=== PATIENT | male | born 1980 | race African-American/Black ===

== ENCOUNTER 2019-03-07 20:46 | Inpatient (IN) | payer MEDICAID ==
[~2019-03-07] VITALS: Ht 182.9 cm; Wt 83.9 kg
[2019-03-07] MEDS ORDERED: TERBUTALINE SULFATE 1MG/ML VIAL SUBCUT ONE (23:15)
[2019-03-08] MEDS ORDERED: MORPHINE SULFATE 4 MG/ML CPJ (NOT FOR IM USE) IV ONE ×2 (00:45→05:15)
[2019-03-08] MEDS ORDERED: PHENYLEPHRINE 20 MG in DEXT 5% WATER 248 ML IV PRN ×2 (01:15→01:45)
[2019-03-08] MEDS ORDERED: TERBUTALINE SULFATE 1MG/ML VIAL SUBCUT ONE (03:15)
[2019-03-08] MEDS ORDERED: IBUPROFEN 600MG TABLET PO NR (05:30)
[2019-03-08] MEDS ORDERED: OXYCODONE HCL/ACETAMINOPHEN 5/325MG TABLET PO NR (05:30)
[2019-03-08 05:57] LABS: BASOPHILS % 0.6 % (0.0-2.0); EOSINOPHILS % 1.5 % (0.0-5.0); HEMATOCRIT. 44.1 % (42.0-52.0); HEMOGLOBIN. 15.1 g/dL (14.0-18.0); LYMPHOCYTES % 16.6 % (20.0-50.0); MEAN CORPUSCULAR HEMOGLOBIN 29.6 pg (28.0-32.0); MEAN CORPUSCULAR VOLUME 86.6 fL (80.0-94.0); MEAN PLATELET VOLUME 7.4 fl (7.4-10.4); MONOCYTES % 9.1 % (2.0-8.0); NEUTROPHILS % 72.2 % (40.0-76.0); PLATELET 392 x1000/uL (130-400); RED BLOOD CELL COUNT 5.09 mill/uL (4.7-6.1); RED CELL DISTRIBUTION WIDTH 13.9 % (11.6-14.6)
[2019-03-08] MEDS ORDERED: CHLORDIAZEPOXIDE 25MG CAPSULE PO NR (06:00)
[2019-03-08 06:05] LABS: CHLORIDE 102 mEq/L (98-107)
[2019-03-08 06:09] LABS: ETHANOL BLOOD < 10 mg/dL
[2019-03-08 06:24] LABS: PARTIAL THROMBOPLASTIN TIME 25.7 sec (23.4-31.0); PROTHROMBIN TIME 10.1 sec (9.6-11.0)
[2019-03-08 08:00] VITALS: BP 120/88
[2019-03-08 08:15] LABS: CLARITY URINE CLEAR (CLEAR); COLOR URINE YELLOW (YELLOW); KETONES URINE NEGATIVE (NEGATIVE); LEUKOCYTE ESTERASE URINE NEGATIVE (NEGATIVE); NITRITE URINE NEGATIVE (NEGATIVE); OCCULT BLOOD URINE TRACE (NEGATIVE); PH URINE 6.5 (4.5-8.0); PROTEIN URINE NEGATIVE (NEGATIVE); SPECIFIC GRAVITY URINE 1.009 (1.005-1.030); UROBILINOGEN URINE 0.2 E.U./dL (0.2-1.0)
[2019-03-08] MEDS ORDERED: POTASSIUM CHLORIDE 20MEQ TABLET SR PO NR ×3 (08:15→20:15)
[2019-03-08] MEDS ORDERED: KETOROLAC 30MG/ML VIAL IV PRN (09:45)
[2019-03-08] MEDS ORDERED: LORAZEPAM 2MG/ML CPJ IV PRN (09:45)
[2019-03-08] MEDS: METOPROLOL TARTRATE 50MG TABLET PO SCH ×2 (10:36→20:44)
[2019-03-08] MEDS: FAMOTIDINE 20MG TABLET PO SCH ×2 (10:36→20:45)
[2019-03-08] MEDS: AMLODIPINE 5MG TABLET PO SCH ×2 (10:37→20:45)
[2019-03-08] MEDS ORDERED: [UNRECOGNIZED DRUG - REMARK] IV ONE ×2 (11:00)
[2019-03-08] MEDS ORDERED: AMLO-326 MT (11:02)
[2019-03-08] MEDS ORDERED: METO25TA6 MT (11:02)
[2019-03-08 11:11] VITALS: BP 122/78
[2019-03-08 14:14] LABS: *AMPHETAMINES SCREEN URINE NEGATIVE (NEGATIVE); *BARBITURATES SCREEN URINE NEGATIVE (NEGATIVE); *BENZODIAZEPINES SCREEN URINE NEGATIVE (NEGATIVE); *COCAINE SCREEN URINE NEGATIVE (NEGATIVE)
[2019-03-08 14:15] LABS: CANNABINOID URINE SCREEN NEGATIVE (NEGATIVE); METHADONE URINE SCREEN NEGATIVE (NEGATIVE); OPIATES URINE SCREEN PRESUMTIVE POSITIVE (NEGATIVE); PHENCYCLIDINE URINE SCREEN NEGATIVE (NEGATIVE)
[2019-03-08 20:00] VITALS: BP 133/87
[2019-03-08] MEDS: CHLORDIAZEPOXIDE 25MG CAPSULE PO SCH (21:20)
[2019-03-09] VITALS: BP 121/83
[2019-03-09 04:00] VITALS: BP 137/87
[2019-03-09] MEDS: CHLORDIAZEPOXIDE 25MG CAPSULE PO SCH ×2 (05:58→14:00)
[2019-03-09 06:14] LABS: BASOPHILS % 0.3 % (0.0-2.0); EOSINOPHILS % 1.8 % (0.0-5.0); HEMATOCRIT. 41.6 % (42.0-52.0); HEMOGLOBIN. 13.9 g/dL (14.0-18.0); LYMPHOCYTES % 21.1 % (20.0-50.0); MEAN CORPUSCULAR HEMOGLOBIN 29.5 pg (28.0-32.0); MEAN CORPUSCULAR VOLUME 88.3 fL (80.0-94.0); MONOCYTES % 8.9 % (2.0-8.0); NEUTROPHILS % 67.9 % (40.0-76.0); PLATELET 357 x1000/uL (130-400); RED BLOOD CELL COUNT 4.71 mill/uL (4.7-6.1); RED CELL DISTRIBUTION WIDTH 13.8 % (11.6-14.6)
[2019-03-09 08:00] VITALS: BP 122/86
[2019-03-09] MEDS: AMLODIPINE 5MG TABLET PO SCH (08:22)
[2019-03-09] MEDS: METOPROLOL TARTRATE 50MG TABLET PO SCH (08:22)
[2019-03-09] MEDS: FAMOTIDINE 20MG TABLET PO SCH (08:22)
[2019-03-09] MEDS ORDERED: POTASSIUM CHLORIDE 20MEQ TABLET SR PO NR (10:15)
[2019-03-09 14:59] VITALS: BP 128/60
== END 2019-03-09 15:20 | disposition home or self-care (01) | DRG 501 ==
LOC: ER 20:46 → 6EST 03-08 05:44 → ENRESERV 03-08 07:11
PROVIDERS: ADMIT Internal Medicine; ATTEND Internal Medicine
PROC: 0V9S3ZZ Drainage of Penis, Percutaneous Approach (ICD-10-PCS; principal; 2019-03-08)
PROC: 3E0N3GC Introduction of Other Therapeutic Substance into Male Reproductive, Percutaneous Approach (ICD-10-PCS; 2019-03-08)
DX: N48.39 Other priapism (principal); E87.6 Hypokalemia; F10.10 Alcohol abuse, uncomplicated; G89.29 Other chronic pain; M10.9 Gout, unspecified; F17.200 Nicotine dependence, unspecified, uncomplicated; I10 Essential (primary) hypertension; Z80.6 Family history of leukemia; Z82.49 Family history of ischemic heart disease and other diseases of the circulatory system; Z83.3 Family history of diabetes mellitus
CPT/HCPCS: 36415; 80051; 80305; 80320; 83735; 85660; 96374; 96375; 99285; J2270; J2370; J3105; J3490; J7050; J7060; G0480

== ENCOUNTER 2019-03-12 00:35 | Emergency (ER) | payer MEDICAID ==
[~2019-03-12] VITALS: Ht 182.9 cm; Wt 84.0 kg
[~2019-03-12 00:35] MED LIST: AMLO-326 MT; METO25TA6 MT
[2019-03-12 04:07] LABS: BASOPHILS % 0.5 % (0.0-2.0); EOSINOPHILS % 1.8 % (0.0-5.0); HEMATOCRIT. 41.2 % (42.0-52.0); HEMOGLOBIN. 14.2 g/dL (14.0-18.0); LYMPHOCYTES % 18.2 % (20.0-50.0); MEAN CORPUSCULAR HEMOGLOBIN 29.9 pg (28.0-32.0); MEAN CORPUSCULAR VOLUME 86.8 fL (80.0-94.0); MEAN PLATELET VOLUME 7.2 fl (7.4-10.4); MONOCYTES % 7.4 % (2.0-8.0); NEUTROPHILS % 72.1 % (40.0-76.0); PLATELET 423 x1000/uL (130-400); RED BLOOD CELL COUNT 4.75 mill/uL (4.7-6.1); RED CELL DISTRIBUTION WIDTH 13.9 % (11.6-14.6)
[2019-03-12 04:14] LABS: CHLORIDE 106 mEq/L (98-107)
[2019-03-12 04:17] LABS: ETHANOL BLOOD 198 mg/dL
[2019-03-12] MEDS ORDERED: POTASSIUM CHLORIDE 20MEQ TABLET SR PO SCH (04:30)
[2019-03-12 04:50] VITALS: BP 132/75
== END 2019-03-12 04:51 | disposition home or self-care (01) ==
LOC: ER 00:35
DX: F10.10 Alcohol abuse, uncomplicated (principal); Y90.6 Blood alcohol level of 120-199 mg/100 ml; E87.6 Hypokalemia; R20.2 Paresthesia of skin; I10 Essential (primary) hypertension; F17.200 Nicotine dependence, unspecified, uncomplicated; F12.10 Cannabis abuse, uncomplicated; Z88.8 Allergy status to other drugs, medicaments and biological substances
CPT/HCPCS: 36415; 80048; 80320; 85025; 99283; Z7610; G0480

== ENCOUNTER 2019-04-12 22:02 | Emergency (ER) | payer MEDICAID | END 2019-04-12 22:24 | disposition left against medical advice (07) | LOC: ER 22:02 | DX: Z53.21 Procedure and treatment not carried out due to patient leaving prior to being seen by health care provider (principal) ==

== ENCOUNTER 2019-04-21 12:29 | Emergency (ER) | payer MEDICAID ==
[~2019-04-21] VITALS: Ht 182.9 cm; Wt 84.0 kg
[2019-04-21] MEDS ORDERED: ACETAMINOPHEN 325MG TABLET PO ONE (15:15)
[2019-04-21 15:22] LABS: CHLORIDE 104 mEq/L (98-107)
[2019-04-21 15:23] LABS: BASOPHILS % 0.8 % (0.0-2.0); HEMATOCRIT. 43.4 % (42.0-52.0); HEMOGLOBIN. 14.7 g/dL (14.0-18.0); LYMPHOCYTES % 11.2 % (20.0-50.0); MEAN CORPUSCULAR HEMOGLOBIN 29.7 pg (28.0-32.0); MEAN CORPUSCULAR VOLUME 87.4 fL (80.0-94.0); MEAN PLATELET VOLUME 7.6 fl (7.4-10.4); MONOCYTES % 5.4 % (2.0-8.0); NEUTROPHILS % 81.6 % (40.0-76.0); PLATELET 422 x1000/uL (130-400); RED BLOOD CELL COUNT 4.97 mill/uL (4.7-6.1); RED CELL DISTRIBUTION WIDTH 13.9 % (11.6-14.6)
[2019-04-21] MEDS ORDERED: TERBUTALINE SULFATE 1MG/ML VIAL SUBCUT ONE ×3 (15:30→20:00)
[2019-04-21 15:37] LABS: PARTIAL THROMBOPLASTIN TIME 24.5 sec (23.4-31.0); PROTHROMBIN TIME 9.8 sec (9.6-11.0)
[2019-04-21 16:22] LABS: *AMPHETAMINES SCREEN URINE NEGATIVE (NEGATIVE); *BARBITURATES SCREEN URINE NEGATIVE (NEGATIVE); *BENZODIAZEPINES SCREEN URINE NEGATIVE (NEGATIVE); CANNABINOID URINE SCREEN PRESUMTIVE POSITIVE (NEGATIVE); PHENCYCLIDINE URINE SCREEN NEGATIVE (NEGATIVE)
[2019-04-21 16:23] LABS: *COCAINE SCREEN URINE NEGATIVE (NEGATIVE); METHADONE URINE SCREEN NEGATIVE (NEGATIVE); OPIATES URINE SCREEN NEGATIVE (NEGATIVE)
[2019-04-21 16:30] LABS: CLARITY URINE CLEAR (CLEAR); COLOR URINE YELLOW (YELLOW); KETONES URINE NEGATIVE (NEGATIVE); NITRITE URINE NEGATIVE (NEGATIVE); OCCULT BLOOD URINE NEGATIVE (NEGATIVE); PH URINE 6.5 (4.5-8.0); PROTEIN URINE NEGATIVE (NEGATIVE); SPECIFIC GRAVITY URINE 1.016 (1.005-1.030)
[2019-04-21 16:31] LABS: LEUKOCYTE ESTERASE URINE NEGATIVE (NEGATIVE)
[2019-04-21] MEDS ORDERED: MORPHINE SULFATE 4 MG/ML CPJ (NOT FOR IM USE) IV ONE (17:30)
[2019-04-21] MEDS ORDERED: POTASSIUM CHLORIDE 20MEQ TABLET SR PO ONE (18:00)
[2019-04-21 21:06] VITALS: BP 164/99
== END 2019-04-21 21:07 | disposition home or self-care (01) ==
LOC: ER 12:29
DX: N48.39 Other priapism (principal); D57.3 Sickle-cell trait; E87.6 Hypokalemia; E86.0 Dehydration; D72.829 Elevated white blood cell count, unspecified; I10 Essential (primary) hypertension; F12.10 Cannabis abuse, uncomplicated; F10.20 Alcohol dependence, uncomplicated; F17.200 Nicotine dependence, unspecified, uncomplicated; Z87.09 Personal history of other diseases of the respiratory system; N48.89 Other specified disorders of penis; L80 Vitiligo; M43.9 Deforming dorsopathy, unspecified; Z88.8 Allergy status to other drugs, medicaments and biological substances; Z79.899 Other long term (current) drug therapy; Y90.9 Presence of alcohol in blood, level not specified
CPT/HCPCS: 36415; 80053; 80305; 81003; 85025; 85610; 85730; 96372; 96374; 99283; J2270; J3105

== ENCOUNTER 2019-04-27 14:35 | Emergency (ER) | payer MEDICAID ==
[~2019-04-27] VITALS: Ht 182.9 cm; Wt 98.5 kg
[2019-04-27] MEDS ORDERED: TERBUTALINE SULFATE 1MG/ML VIAL SUBCUT ONE ×4 (16:45→20:45)
[2019-04-27] MEDS ORDERED: MORPHINE SULFATE 4 MG/ML CPJ (NOT FOR IM USE) IV ONE (17:30)
[2019-04-27] MEDS ORDERED: FENTANYL CITRATE/PF 50MCG/ML 2ML VIAL IV ONE (22:15)
[2019-04-27 22:59] VITALS: BP 155/101
== END 2019-04-27 23:30 | disposition home or self-care (01) ==
LOC: ER 14:49
DX: N48.30 Priapism, unspecified (principal); F10.10 Alcohol abuse, uncomplicated; Y90.9 Presence of alcohol in blood, level not specified; D57.3 Sickle-cell trait; I10 Essential (primary) hypertension; Z88.8 Allergy status to other drugs, medicaments and biological substances; F17.210 Nicotine dependence, cigarettes, uncomplicated; F12.90 Cannabis use, unspecified, uncomplicated
CPT/HCPCS: 96372; 96374; 99283; J2270; J3105; Z7610

== ENCOUNTER 2020-02-08 10:18 | Emergency (ER) | payer SELFPAY ==
[~2020-02-08] VITALS: Ht 180.3 cm; Wt 91.0 kg
[~2020-02-08 10:18] MED LIST changes: -AMLO-326 MT; +AMLO-371 MT
[2020-02-08] MEDS ORDERED: HYDROCODONE/ACETAMINOPHEN 5/325MG TABLET PO ONE (11:15)
[2020-02-08] MEDS ORDERED: ONDANSETRON 4MG ODT PO ONE (11:15)
[2020-02-08 13:04] VITALS: BP 134/94
== END 2020-02-08 13:07 | disposition home or self-care (01) ==
LOC: ER 10:18
DX: S52.131A Displaced fracture of neck of right radius, initial encounter for closed fracture (principal); S62.014A Nondisplaced fracture of distal pole of navicular [scaphoid] bone of right wrist, initial encounter for closed fracture; Y93.89 Activity, other specified; V28.0XXA Motorcycle driver injured in noncollision transport accident in nontraffic accident, initial encounter; Y92.410 Unspecified street and highway as the place of occurrence of the external cause; I10 Essential (primary) hypertension; F12.90 Cannabis use, unspecified, uncomplicated
CPT/HCPCS: 29105; 73080; 73110; 99283; Q0162

== ENCOUNTER 2020-07-06 05:19 | Emergency (ER) | payer MEDICAID ==
[~2020-07-06] VITALS: Ht 180.3 cm; Wt 87.0 kg
[2020-07-06] MEDS ORDERED: LIDOCAINE 1%/EPI 1:100,000 10 ML VIAL IJ ONE (07:15)
[2020-07-06] MEDS ORDERED: BACITRACIN ZINC OINT UDPKT TOP ONE (07:15)
[2020-07-06] MEDS ORDERED: IBUPROFEN 600MG TABLET PO ONE (07:15)
[2020-07-06 07:56] LABS: BASOPHILS % 0.7 % (0.0-2.0); EOSINOPHILS % 1.4 % (0.0-5.0); HEMATOCRIT. 39.2 % (42.0-52.0); HEMOGLOBIN. 13.4 g/dL (14.0-18.0); LYMPHOCYTES % 13.8 % (20.0-50.0); MEAN CORPUSCULAR HEMOGLOBIN 29.6 pg (28.0-32.0); MEAN CORPUSCULAR VOLUME 86.2 fL (80.0-94.0); MEAN PLATELET VOLUME 7.3 fl (7.4-10.4); MONOCYTES % 6.8 % (2.0-8.0); NEUTROPHILS % 77.3 % (40.0-76.0); PLATELET 386 x1000/uL (130-400); RED BLOOD CELL COUNT 4.54 mill/uL (4.7-6.1); RED CELL DISTRIBUTION WIDTH 14.8 % (11.6-14.6)
[2020-07-06 08:04] LABS: CHLORIDE 104 mEq/L (98-107)
[2020-07-06 08:08] LABS: ETHANOL BLOOD 146 mg/dL
[2020-07-06] MEDS ORDERED: POTASSIUM CHLORIDE 20MEQ TABLET SR PO ONE (09:30)
[2020-07-06] MEDS ORDERED: CEFAZOLIN 1000MG PREMIX 50 ML IV ONE (09:30)
[2020-07-06] MEDS ORDERED: CEPHALEXIN 250MG CAPSULE PO ONE (10:30)
[2020-07-06 11:00] VITALS: BP 133/79
== END 2020-07-06 11:05 | disposition home or self-care (01) ==
LOC: ER 05:19
DX: S91.012A Laceration without foreign body, left ankle, initial encounter (principal); W22.8XXA Striking against or struck by other objects, initial encounter; F10.129 Alcohol abuse with intoxication, unspecified; Y90.6 Blood alcohol level of 120-199 mg/100 ml; E87.6 Hypokalemia; Y93.89 Activity, other specified; Y92.89 Other specified places as the place of occurrence of the external cause
CPT/HCPCS: 12002; 36415; 73600; 80053; 80320; 85025; 99285; J3490; G0480

== ENCOUNTER 2020-07-22 19:20 | Emergency (ER) | payer MEDICAID ==
[~2020-07-22] VITALS: Ht 177.8 cm; Wt 100.0 kg
[2020-07-22 19:23] VITALS: BP 159/112
== END 2020-07-22 21:41 | disposition home or self-care (01) ==
LOC: ER 19:20
DX: Z48.02 Encounter for removal of sutures (principal)
CPT/HCPCS: 99281

== ENCOUNTER 2020-10-11 22:43 | Emergency (ER) | payer MEDICAID ==
[~2020-10-11] VITALS: Ht 180.3 cm; Wt 88.0 kg
[2020-10-12] MEDS ORDERED: KETOROLAC 30MG/ML VIAL IM ONE (00:30)
[2020-10-12 00:56] VITALS: BP 136/86
== END 2020-10-12 02:02 | disposition home or self-care (01) ==
LOC: ER 22:43
DX: M10.061 Idiopathic gout, right knee (principal); I10 Essential (primary) hypertension
CPT/HCPCS: 73590; 96372; 99283; J1885

== ENCOUNTER 2021-09-22 19:08 | Emergency (ER) | payer MEDICAID ==
[~2021-09-22] VITALS: Ht 182.9 cm; Wt 85.0 kg
[2021-09-22] MEDS ORDERED: ACETAMINOPHEN 325MG TABLET PO ONE (20:30)
[2021-09-22] MEDS ORDERED: HYDROCODONE/ACETAMINOPHEN 5/325MG TABLET PO ONE (20:30)
[2021-09-22] MEDS ORDERED: CYCLOBENZAPRINE 10MG TABLET PO ONE (20:30)
[2021-09-22 20:47] VITALS: BP 128/94
[2021-09-22] MEDS ORDERED: HYDR-4001 MT (21:43)
[2021-09-22] MEDS ORDERED: IBUP-2030 MT (21:45)
[2021-09-23] MEDS ORDERED: HYDR-4001 MT (19:16)
[2021-09-23] MEDS ORDERED: MED4 MT (19:16)
== END 2021-09-22 21:53 | disposition home or self-care (01) ==
LOC: ER 19:08
DX: M54.59 Other low back pain (principal); I10 Essential (primary) hypertension; D57.3 Sickle-cell trait
CPT/HCPCS: 99284

== ENCOUNTER 2021-09-23 16:51 | Emergency (ER) | payer MEDICAID ==
[~2021-09-23] VITALS: Ht 182.9 cm; Wt 85.0 kg
[~2021-09-23 16:51] MED LIST changes: +IBUP-2030 MT
[2021-09-23 17:10] VITALS: BP 111/80
[2021-09-23] MEDS ORDERED: MED4 MT (19:16)
[2021-09-23] MEDS ORDERED: HYDR-4001 MT (19:16)
== END 2021-09-23 20:19 | disposition home or self-care (01) ==
LOC: ER 16:51
DX: M54.9 Dorsalgia, unspecified (principal); F12.10 Cannabis abuse, uncomplicated; F17.290 Nicotine dependence, other tobacco product, uncomplicated; I10 Essential (primary) hypertension; Z88.8 Allergy status to other drugs, medicaments and biological substances
CPT/HCPCS: 99281; 99283; 99406

== ENCOUNTER 2022-12-05 23:19 | Emergency (ER) | payer MEDICAID ==
[~2022-12-05] VITALS: Ht 170.2 cm; Wt 84.5 kg
[~2022-12-05 23:19] MED LIST changes: +HYDR-4001 MT; +MED4 MT
[2022-12-06] MEDS ORDERED: METHYLPREDNISOLONE SOD SUCC 125 MG/2 ML VIAL IM STA (00:20)
[2022-12-06] MEDS ORDERED: KETOROLAC 60MG/2ML VIAL IM STA (00:20)
[2022-12-06] MEDS ORDERED: NAPR500T7 PO (04:47)
[2022-12-06] MEDS ORDERED: HYDR-4001 PO (04:47)
[2022-12-06] MEDS ORDERED: KETOROLAC 60MG/2ML VIAL IM NR (05:00)
[2022-12-06 05:11] VITALS: BP 152/90
[2022-12-06] MEDS ORDERED: METHYLPREDNISOLONE SOD SUCC 125 MG/2 ML VIAL IM NR (05:15)
== END 2022-12-06 05:36 | disposition home or self-care (01) ==
LOC: ER 23:39
DX: M10.061 Idiopathic gout, right knee (principal); M25.552 Pain in left hip; F12.10 Cannabis abuse, uncomplicated; I10 Essential (primary) hypertension; Z88.8 Allergy status to other drugs, medicaments and biological substances; Z79.899 Other long term (current) drug therapy; Z98.890 Other specified postprocedural states
CPT/HCPCS: 96372; 99284; J1885; J2930

== ENCOUNTER 2023-02-01 15:01 | Emergency (ER) | payer MEDICAID ==
[~2023-02-01] VITALS: Ht 185.4 cm; Wt 91.0 kg
[~2023-02-01 15:01] MED LIST changes: +HYDR-4001 PO; +NAPR500T7 PO
[2023-02-01 15:05] VITALS: BP 118/74
== END 2023-02-01 22:01 | disposition home or self-care (01) ==
LOC: ER 15:01
DX: J02.9 Acute pharyngitis, unspecified (principal); J35.1 Hypertrophy of tonsils; I10 Essential (primary) hypertension; Z79.899 Other long term (current) drug therapy
CPT/HCPCS: 99281

== ENCOUNTER 2023-10-17 18:56 | Emergency (ER) | payer MEDICAID ==
[~2023-10-17] VITALS: Ht 180.3 cm; Wt 104.0 kg
[2023-10-17 19:02] VITALS: O2SAT 98
[2023-10-17] MEDS ORDERED: LIDOCAINE HCL/PF 1% 10 MG/ML 5ML VIAL INFIL ONE ×2 (19:45→22:45)
[2023-10-17] MEDS ORDERED: MORPHINE SULFATE 10 MG/ML CPJ IM ONE (21:15)
[2023-10-17 22:01] LABS: BG BASE EXCESS 4.1 mmol/L (-2.0-2.0); BG CARBOXYHEMOGLOBIN 0.8 % (0.5-1.5); BG DEOXYHEMOGLOBIN 4.2 % (0.0-5.0); BG FRACTION INSPIRED OXYGEN 21; BG HCO3 ACT 27.5 mmol/L (22.0-26.0); BG METHEMOGLOBIN 0.2 % (0.0-1.5); BG OXYGEN SATURATION 95.8 % (92.0-98.5); BG OXYHEMOGLOBIN 94.8 % (94.0-97.0); BG PCO2 37.1 mmHg (35.0-45.0); BG PH 7.488 (7.350-7.450); BG PO2 77.7 mmHg (75.0-100.0); BG SAMPLE SITE LEFT RADIAL; BG TOTAL HEMOGLOBIN 13.1 g/dL (12.0-18.0); BG VENT MODE ROOM AIR
[2023-10-17] MEDS ORDERED: MORPHINE SULFATE 10 MG/ML CPJ IM NR (23:15)
[2023-10-17] MEDS ORDERED: PHENYLEPHRINE 100MCG/ML 10ML VIAL (PRIAPISM) MC NR (23:45)
[2023-10-18] MEDS ORDERED: TERBUTALINE SULFATE 1MG/ML VIAL SUBCUT ONE (00:45)
[2023-10-18] MEDS ORDERED: LIDOCAINE HCL/PF 1% 10 MG/ML 5ML VIAL INFIL NR (01:30)
[2023-10-18] MEDS ORDERED: LIDOCAINE HCL 1% 20ML VIAL (Pyxis) INJ INFIL ONE (02:00)
[2023-10-18 03:30] VITALS: BP 143/77; PULSE 84; RESP 15; TEMP 98.2
== END 2023-10-18 03:30 | disposition home or self-care (01) ==
LOC: ER 18:56
DX: N48.30 Priapism, unspecified (principal); I10 Essential (primary) hypertension; F12.10 Cannabis abuse, uncomplicated
CPT/HCPCS: 82805; 82375; 99284; 36600; 82803; 96372; J3490 ×3; J2370; J2270; Z7610 ×2; J3105

== ENCOUNTER 2024-07-04 03:15 | Emergency (ER) | payer MEDICAID ==
[~2024-07-04] VITALS: Ht 182.9 cm; Wt 87.0 kg
[2024-07-04 03:26] VITALS: O2SAT 97
[2024-07-04] MEDS ORDERED: MORPHINE SULFATE 4 MG/ML INJ (FOR IV/IM USE) IV STA (05:23)
[2024-07-04 05:40] VITALS: TEMP 98.9
[2024-07-04] MEDS ORDERED: PHENYLEPHRINE 100MCG/ML 10ML (PRIAPISM) MC PRN (05:45)
[2024-07-04 06:19] LABS: CLARITY URINE CLEAR (CLEAR); COLOR URINE YELLOW (YELLOW); GLUCOSE URINE NEGATIVE (NEGATIVE); KETONES URINE NEGATIVE (NEGATIVE); LEUKOCYTE ESTERASE URINE NEGATIVE (NEGATIVE); NITRITE URINE NEGATIVE (NEGATIVE); OCCULT BLOOD URINE NEGATIVE (NEGATIVE); PH URINE 5.5 (4.5-8.0); PROTEIN URINE NEGATIVE (NEGATIVE); SPECIFIC GRAVITY URINE 1.011 (1.005-1.030); UROBILINOGEN URINE 0.2 E.U./dL (0.2-1.0)
[2024-07-04] MEDS: MORPHINE SULFATE 4 MG/ML INJ (FOR IV/IM USE) IV NR (06:20)
[2024-07-04] MEDS: ONDANSETRON HCL 4MG/2ML INJ IV NR (06:23)
[2024-07-04] MEDS: ONDANSETRON HCL 4MG/2ML INJ IV STA (06:26)
[2024-07-04 09:44] VITALS: BP 127/94; PULSE 70; RESP 12
== END 2024-07-04 09:43 | disposition home or self-care (01) ==
LOC: ER 03:23
DX: N48.30 Priapism, unspecified (principal); I10 Essential (primary) hypertension; F17.200 Nicotine dependence, unspecified, uncomplicated; Z88.8 Allergy status to other drugs, medicaments and biological substances; Z79.899 Other long term (current) drug therapy; Z98.890 Other specified postprocedural states
CPT/HCPCS: 81003; 96374; 99283; J2405; J2270; Z7610 ×3